=== PATIENT | female | born 1965 | race Caucasian/White ===

== ENCOUNTER 2017-02-01 08:43 | Day surgery (SDC) | payer BC, OTHER ==
[~2017-02-01] VITALS: Ht 162.6 cm; Wt 61.2 kg
[2017-02-01 10:23] VITALS: Ht 162.6 cm; Wt 61.2 kg
[2017-02-01 10:51] VITALS: BP 109/52; PULSE 73; RESP 20
[2017-02-01] MEDS ORDERED: MIDAZOLAM 1 MG/ML 2 ML INJ ONE ×2 (11:22)
[2017-02-01] MEDS ORDERED: FENTAnyl 50 MCG/ML VIAL ONE (11:22)
[2017-02-01 11:45] VITALS: BP 90/46; RESP 20
--- NOTE | 2017-02-02 05:56 | GILP ---
DATE OF PROCEDURE: NAME OF PROCEDURE: Colonoscopy. SURGEON: Greg Farley MD PREOPERATIVE DIAGNOSIS: Positive occult blood in the stool. POSTOPERATIVE DIAGNOSES: 1. Colonoscopy all the way to the cecum. 2. Internal hemorrhoids. 3. No colitis or neoplasm was identified. INDICATION FOR THE PROCEDURE: Ms. Christen Jackson is a 51-year-old female patient who was noted to have positive occult blood in the stool. She has never had screening colonoscopy. The procedure and possible complications are well explained to the patient. She understood and cons ented to the procedure. DESCRIPTION OF PROCEDURE: Under the influence of fentanyl and Versed, the colonoscope was carefully introduced in the rectum and under direct vision, it was advanced all the way to the cecum. FINDINGS: The patient had internal hemorrhoids. No colitis or neoplasm was identified. She tolerated the procedure very well and there was no complication from the procedure. At the end of the procedure, she was awake with stable vital signs and she was discharged home to the care of h er family. IMPRESSION: 1. Colonoscopy all the way to the cecum. 2. Internal hemorrhoids. 3. No colitis or neoplasm was identified. PLAN: Next screening colonoscopy in 10 years. Dictated By: GREG BRANDT/DEEPAK Conf#: [id number] DID#: [id number]
== END 2017-02-01 13:18 | disposition home or self-care (01) ==
LOC: GIL 08:43
PROVIDERS: ATTEND Internal Medicine Gastroenterology
DX: K92.1 Melena (principal); K64.8 Other hemorrhoids
CPT/HCPCS: 45378; J2250; J3010; Z7610